=== PATIENT | male | born 1995 | race Two or more races ===

== ENCOUNTER 2016-12-15 09:11 | Emergency (ER) | payer OTHER ==
[~2016-12-15] VITALS: Ht 170.2 cm; Wt 60.0 kg
[2016-12-15 11:14] VITALS: BP 121/72
== END 2016-12-15 13:13 | disposition home or self-care (01) ==
LOC: EMS 09:17
DX: S93.402A Sprain of unspecified ligament of left ankle, initial encounter (principal); X58.XXXA Exposure to other specified factors, initial encounter; Y93.89 Activity, other specified; Y92.89 Other specified places as the place of occurrence of the external cause; Y99.8 Other external cause status
CPT/HCPCS: 99284

== ENCOUNTER 2017-11-01 12:08 | Emergency (ER) | payer OTHER ==
[~2017-11-01] VITALS: Ht 172.7 cm; Wt 54.5 kg
[2017-11-01] MEDS ORDERED: IBUPROFEN 600 MG TABLET PO ONE (13:00)
[2017-11-01] MEDS ORDERED: ACETAMINOPHEN 500 MG TABLET PO ONE (13:00)
[2017-11-01] MEDS ORDERED: SODIUM CHLORIDE 0.9% 1,000 ML IV ONE (14:15)
[2017-11-01 15:10] VITALS: BP 120/68
== END 2017-11-01 16:05 | disposition home or self-care (01) ==
LOC: EDUNIT# 12:08 → EMS 12:10
DX: J11.1 Influenza due to unidentified influenza virus with other respiratory manifestations (principal); R03.0 Elevated blood-pressure reading, without diagnosis of hypertension
CPT/HCPCS: 71020; 96360; 99284; J7030

== ENCOUNTER → 2017-12-28 | Outpatient (CLI) | payer OTHER | END | disposition home or self-care (01) | LOC: RADPV 08:57 | PROVIDERS: ATTEND Internal Medicine | DX: R76.11 Nonspecific reaction to tuberculin skin test without active tuberculosis (principal) ==

== ENCOUNTER 2018-03-27 15:39 | Emergency (ER) | payer OTHER ==
[~2018-03-27] VITALS: Ht 172.7 cm; Wt 57.2 kg
[2018-03-27 16:08] VITALS: BP 123/66
[2018-03-27] MEDS ORDERED: IBUPROFEN 600 MG TABLET PO ONE (16:30)
== END 2018-03-27 17:15 | disposition home or self-care (01) ==
LOC: EMS 15:40
DX: K62.89 Other specified diseases of anus and rectum (principal); F12.10 Cannabis abuse, uncomplicated
CPT/HCPCS: 99282

== ENCOUNTER 2019-11-07 11:31 | Emergency (ER) | payer SELFPAY ==
[~2019-11-07] VITALS: Ht 175.3 cm; Wt 61.4 kg
[2019-11-07 11:58] VITALS: BP 132/79
== END 2019-11-07 13:13 | disposition home or self-care (01) ==
LOC: EMS 11:33
DX: J06.9 Acute upper respiratory infection, unspecified (principal); M54.5 Low back pain; F12.90 Cannabis use, unspecified, uncomplicated